=== PATIENT | male | born 1935 | race Caucasian/White ===

== ENCOUNTER 2018-07-22 18:08 | Emergency (ER) | payer MEDICARE, OTHER ==
[~2018-07-22] VITALS: Ht 167.6 cm; Wt 81.8 kg
[~2018-07-22 18:08] MED LIST: B-6 PO; BAYER ASPIRIN325 MG PO; DHEA25 M1 PO; DILAUDID4 MG PO; GAVISCON E1 TAB.CHEW PO; HYZAAR 100-25 T1 TAB PO; JENTADUETO 2.51 EACH PO; JENTADUETO PO; KEFLEX500 MG PO; LOVAZA1 G PO; NIACIN500 MG PO; PLAVIX75 MG PO; VITAFUSION PO; ZANTAC150 MG PO; [UNRECOGNIZED DRUG - OTHER] PO
[2018-07-22 18:30] VITALS: Ht 167.6 cm; Wt 81.8 kg
[2018-07-22] MEDS ORDERED: GLUCOPHAGE500 MG PO (18:34)
[2018-07-22] MEDS ORDERED: GLIMEPIRIDE1 MG PO (18:35)
[2018-07-22] MEDS ORDERED: BASAGLAR K100 UNIT/1 SC (18:35)
[2018-07-22] MEDS ORDERED: ROBAXIN500 MG PO (20:40)
[2018-07-22] MEDS ORDERED: ULTRAM50 MG PO (20:40)
[2018-07-22 20:47] VITALS: BP 134/66
== END 2018-07-22 20:47 | disposition home or self-care (01) ==
LOC: D.ER 18:08
DX: M54.16 Radiculopathy, lumbar region (principal); S16.1XXA Strain of muscle, fascia and tendon at neck level, initial encounter; V43.52XA Car driver injured in collision with other type car in traffic accident, initial encounter; Y93.89 Activity, other specified; Y92.410 Unspecified street and highway as the place of occurrence of the external cause; E11.9 Type 2 diabetes mellitus without complications; I10 Essential (primary) hypertension

== ENCOUNTER → 2018-07-26 19:28 | Outpatient (CLI) | payer MEDICARE, OTHER ==
[2018-07-22 18:30] VITALS: BMI 29.1
[~2018-07-26 19:28] MED LIST changes: +BASAGLAR K100 UNIT/1 SC; +GLIMEPIRIDE1 MG PO; +GLUCOPHAGE500 MG PO; +ROBAXIN500 MG PO; +ULTRAM50 MG PO
== END | disposition home or self-care (01) ==
LOC: D.LABREF 19:28
DX: M16.12 Unilateral primary osteoarthritis, left hip (principal); Z11.8 Encounter for screening for other infectious and parasitic diseases

== ENCOUNTER 2018-07-29 10:24 | Inpatient (IN) | payer MEDICARE, OTHER ==
[~2018-07-29] VITALS: Ht 167.6 cm; Wt 80.5 kg
[2018-08-11] MEDS ORDERED: SOMA250 MG PO (10:38)
[2018-08-11] MEDS ORDERED: TRESIBA FL100 UNIT/1 SC (10:39)
[2018-08-11] MEDS ORDERED: HYDROCODON-ACE1 EAC7 PO (10:42)
[2018-08-11 11:56] LABS: BASOPHILS 0.3 % (0-2); EOSINOPHILS 0.6 % (0-7); HEMATOCRIT 35.7 % (42.0-54.0); HEMOGLOBIN 12.8 g/dL (13.5-17.5); IMMATURE GRANULOCYTES 0.2 % (0-5); LYMPHOCYTES 17.8 % (15-50); MCH 31.4 pg (26.0-34.0); MCHC 35.9 g/dL (31.0-37.0); MCV 87.7 fL (80.0-100.0); MEAN PLATELET VOLUME 8.9 fL (7.4-10.4); MONOCYTES 10.6 % (2-11); NEUTROPHILS 70.5 % (40-80); PLATELET COUNT 275 10x3/uL (130-400); RBC 4.07 10x6/uL (4.20-6.10); WBC 8.9 10x3/uL (4.8-10.8)
[2018-08-11 12:02] LABS: CALCIUM 9.2 mg/dL (8.5-10.1); CARBON DIOXIDE 25.4 mmol/L (21.0-32.0); CHLORIDE - SERUM 92 mmol/L (98-107); CREATININE - SERUM 0.8 mg/dL (0.6-1.3); POTASSIUM - SERUM 3.7 mmol/L (3.5-5.1); SODIUM 128 mmol/L (136-145); UREA NITROGEN 17 mg/dL (7-18); eGFR NON AFRICAN AMERICAN > 90 mL/min (90-120)
[2018-08-11 12:06] LABS: APTT 35.2 SECONDS (22.8-39.4)
[2018-08-11 12:07] LABS: INR 1.01 (0.85-1.17); PROTIME 12.8 SECONDS (11.6-15.0)
[2018-08-11 12:11] LABS: CALC OSMOLALITY 255 mosm/kg (275-300)
[2018-08-11 12:18] LABS: GLUCOSE 41 mg/dL (74-106)
[2018-08-11 12:54] LABS: APPEARANCE CLEAR (CLEAR); BILIRUBIN NEGATIVE (NEGATIVE); COLOR YELLOW (YELLOW); GLUCOSE NEGATIVE (NEGATIVE); KETONE NEGATIVE (NEGATIVE); NITRITE NEGATIVE (NEGATIVE); PH 6.5 (5.0-6.0); PROTEIN NEGATIVE (NEGATIVE); SPECIFIC GRAVITY 1.015 (1.005-1.020); UROBILINOGEN NORMAL (NORMAL)
[2018-08-18 10:22] VITALS: BP 148/75; BMI 29.1
[2018-08-18 18:01] VITALS: BP 146/77
[2018-08-18 18:11] VITALS: BMI 28.6
[2018-08-18 21:36] VITALS: BP 140/68
[2018-08-19 00:36] VITALS: BP 138/60
[2018-08-19 05:44] VITALS: BP 120/64
[2018-08-19 05:48] LABS: BASOPHILS 0.1 % (0-2); EOSINOPHILS 0 % (0-7); HEMATOCRIT 29.2 % (42.0-54.0); IMMATURE GRANULOCYTES 0.2 % (0-5); LYMPHOCYTES 4.6 % (15-50); MCH 30.3 pg (26.0-34.0); MCHC 34.2 g/dL (31.0-37.0); MCV 88.5 fL (80.0-100.0); MONOCYTES 10.4 % (2-11); NEUTROPHILS 84.7 % (40-80); PLATELET COUNT 287 10x3/uL (130-400); RDW 14.6 % (11.5-14.5); WBC 11.2 10x3/uL (4.8-10.8)
[2018-08-19 06:16] LABS: ANION GAP 18.9 mmol/L (8-16); CALCIUM 7.9 mg/dL (8.5-10.1); CARBON DIOXIDE 22.5 mmol/L (21.0-32.0); CREATININE - SERUM 1.1 mg/dL (0.6-1.3); POTASSIUM - SERUM 4.4 mmol/L (3.5-5.1)
[2018-08-19 09:14] VITALS: BP 154/64
[2018-08-19 12:47] VITALS: BP 123/67
[2018-08-19 16:23] VITALS: BP 119/61
[2018-08-19 18:47] LABS: BASOPHILS 0.1 % (0-2); EOSINOPHILS 0 % (0-7); HEMATOCRIT 29.5 % (42.0-54.0); HEMOGLOBIN 10.2 g/dL (13.5-17.5); IMMATURE GRANULOCYTES 0.4 % (0-5); LYMPHOCYTES 4.6 % (15-50); MCH 30.8 pg (26.0-34.0); MCHC 34.6 g/dL (31.0-37.0); MCV 89.1 fL (80.0-100.0); MEAN PLATELET VOLUME 8.7 fL (7.4-10.4); MONOCYTES 11.7 % (2-11); NEUTROPHILS 83.2 % (40-80); PLATELET COUNT 258 10x3/uL (130-400); RBC 3.31 10x6/uL (4.20-6.10); RDW 14.8 % (11.5-14.5)
[2018-08-19 18:58] LABS: ANION GAP 16.2 mmol/L (8-16); BILIRUBIN - TOTAL 0.42 mg/dL (0.2-1.3); CALCIUM 8.4 mg/dL (8.5-10.1); CARBON DIOXIDE 24.5 mmol/L (21.0-32.0); CREATININE - SERUM 1.1 mg/dL (0.6-1.3); PROTEIN - SERUM 6.7 g/dL (6.4-8.2)
[2018-08-19 19:00] LABS: POTASSIUM - SERUM 3.7 mmol/L (3.5-5.1); WBC 18.4 10x3/uL (4.8-10.8)
[2018-08-19 21:11] VITALS: BP 140/63
[2018-08-20 05:42] VITALS: BP 140/71
[2018-08-20 05:50] LABS: ALBUMIN 2.7 g/dL (3.4-5.0); ALKALINE PHOSPHATASE 61 U/L (46-116); ALT (SGPT) 21 U/L (10-68); BILIRUBIN - TOTAL 0.45 mg/dL (0.2-1.3); CALC OSMOLALITY 264 mosm/kg (275-300); CALCIUM 8.3 mg/dL (8.5-10.1); CARBON DIOXIDE 29.2 mmol/L (21.0-32.0); CHLORIDE - SERUM 92 mmol/L (98-107); GLUCOSE 190 mg/dL (74-106); POTASSIUM - SERUM 3.3 mmol/L (3.5-5.1); PROTEIN - SERUM 6.2 g/dL (6.4-8.2); SODIUM 129 mmol/L (136-145); UREA NITROGEN 15 mg/dL (7-18); eGFR NON AFRICAN AMERICAN 76 mL/min (90-120)
[2018-08-20 06:05] LABS: HEMATOCRIT 26.6 % (42.0-54.0); HEMOGLOBIN 9.5 g/dL (13.5-17.5); LYMPHOCYTES 5.8 % (15-50); MCHC 35.7 g/dL (31.0-37.0); MCV 89.6 fL (80.0-100.0); MEAN PLATELET VOLUME 8.6 fL (7.4-10.4); NEUTROPHILS 81.8 % (40-80); PLATELET COUNT 262 10x3/uL (130-400); RBC 2.97 10x6/uL (4.20-6.10); RDW 14.8 % (11.5-14.5)
[2018-08-20 06:06] LABS: WBC 13.4 10x3/uL (4.8-10.8)
[2018-08-20 09:13] VITALS: BP 133/52
[2018-08-20 09:34] VITALS: Ht 167.6 cm; Wt 80.5 kg
[2018-08-20 12:00] VITALS: BP 130/60
--- NOTE | 2018-08-20 12:12 | MORECARE ---
CASE MANAGEMENT DISCHARGE SUMMARY PATIENT: SALAS CHRISTIAN UNIT: [id number] ADM DATE: 08/18/18 AGE: 82 : 37 SEX: M ROOM/BED: D.2207 AUTHOR: LUKASDOC PHYSICIAN: REFERRING PHYSICIAN: GARY NICHOLAS MD DATE OF SERVICE: 08/20/18 Discharge Plan Patient Name: SALAS CHRISTIAN Facility: [facility]:[place] : 1935 Planned Disposition: Inpatient Rehab Anticipated Discharge Date: Discharge Date: Expected LOS: Initial Reviewer: [email or web address] Initial Review Date: 08/18/2018 Generated: 08/20/18 1:11 pm Comments DCP- Discharge Planning Updated by [email or web address]: Cinthia Swaant on 08/20/18 11:[address] Patient Name: SALAS CHRISTIAN Admission Status: Elective Accout number: [id number] Admission Date: 08-18-2018 : 1935 Admission Diagnosis: Attending: GARY NICHOLAS Current LOS: 2 Anticipated DC Date: Planned Disposition: Inpatient Rehab Primary Insurance: MEDICARE A & B Discharge Planning Comments: CM met with patient to complete initial dc planning assessment. CM educated patient on the CM role and verbal consent given by patient to complete assessment. Patient lives at home with his where he was independent with his care before surgery. At discharge patient would like to return home and feels this is a safe discharge. After reading the MD notes, they are suggesting he will go to [facility] inpatient rehab. Patient asked me to call his and talk to her about all of this. I attempted to call Mady () but did not get an answer. CM discussed availability of home health, rehab services, and medical equipment. Patient has a walker at home. CM will continue to follow and will assist as needed with dc plans/needs. Flatwork Presser: Cinthia Sawant DCPIA - Discharge Planning Initial Assessment Updated by [email or web address]: Cinthia Sawant on 08/20/18 12:05 pm * Is the patient Alert and Oriented? Yes * How many steps to enter\exit or inside your home? * PCP FARO * [facility] * Preadmission Environment Home with Family * ADLs Independent * Equipment Walker * List name and contact numbers for known caregivers / representatives who currently or will assist patient after discharge: MADY () [phone] * Verbal permission to speak to the caregivers and representatives has been obtained from the patient. Yes * Community resources currently utilized None * Additional services required to return to the preadmission environment? Yes * Can the patient safely return to the preadmission environment? Yes * Has this patient been hospitalized within the prior 30 days at any hospital? No Patient Name: SALAS CHRISTIAN Page [id number] at 1212 All edits/amendments must be made on the electronic document DICTATION DATE: 08/20/18 1211 PATIENT OBSERVER: TERA 08/20/18 1211 RPT#: [id number] DC DATE: STATUS: ADM IN [facility] [address] [place] [address] END OF REPORT
--- NOTE | 2018-08-20 12:36 | MORECARE ---
CASE MANAGEMENT DISCHARGE SUMMARY PATIENT: SALAS CHRISTIAN UNIT: [id number] ADM DATE: 08/18/18 AGE: 82 : 37 SEX: M ROOM/BED: D.2207 AUTHOR: LUKASDOC PHYSICIAN: REFERRING PHYSICIAN: GARY NICHOLAS MD DATE OF SERVICE: 08/20/18 Discharge Plan Patient Name: SALAS CHRISTIAN Facility: [facility]:[place] : 1935 Planned Disposition: Inpatient Rehab Anticipated Discharge Date: Discharge Date: Expected LOS: Initial Reviewer: [id number] Initial Review Date: 08/18/2018 Generated: 08/20/18 1:35 pm Comments DCP- Discharge Planning Updated by [email or web address]: Cinthia Sawant on 08/20/18 11:[address] Patient Name: SALAS CHRISTIAN Admission Status: Elective Accout number: [id number] Admission Date: 08-18-2018 : 1935 Admission Diagnosis: Attending: GARY NICHOLAS Current LOS: 2 Anticipated DC Date: Planned Disposition: Inpatient Rehab Primary Insurance: MEDICARE A & B Discharge Planning Comments: CM met with patient to complete initial dc planning assessment. CM educated patient on the CM role and verbal consent given by patient to complete assessment. Patient lives at home with his where he was independent with his care before surgery. At discharge patient would like to return home and feels this is a safe discharge. After reading the MD notes, they are suggesting he will go to [facility] inpatient rehab. Patient asked me to call his and talk to her about all of this. I attempted to call Mady () but did not get an answer. CM discussed availability of home health, rehab services, and medical equipment. Patient has a walker at home. CM will continue to follow and will assist as needed with dc plans/needs. Wood Gouger: Cinthia Sawant DCPIA - Discharge Planning Initial Assessment Updated by [email or web address]: Cinthia Sawant on 08/20/18 12:05 pm * Is the patient Alert and Oriented? Yes * How many steps to enter\exit or inside your home? * PCP [facility]O * [facility] * Preadmission Environment Home with Family * ADLs Independent * Equipment Walker * List name and contact numbers for known caregivers / representatives who currently or will assist patient after discharge: MADY () [phone] * Verbal permission to speak to the caregivers and representatives has been obtained from the patient. Yes * Community resources currently utilized None * Additional services required to return to the preadmission environment? Yes * Can the patient safely return to the preadmission environment? Yes * Has this patient been hospitalized within the prior 30 days at any hospital? No External Providers External Provider: [facility] Contact Date: Service Request Date: Service Type: Resolution: Reviewer: Comments: Last DP export: 08/20/18 11:12 a Patient Name: SALAS CHRISTIAN Page 25858 at 1236 All edits/amendments must be made on the electronic document DICTATION DATE: 08/20/18 1235 CIRCUITRY NEGATIVE INSPECTOR: TERA 08/20/18 1235 RPT#: [id number] AL DATE: STATUS: ADM IN [facility] [address] [place] [address] END OF REPORT
--- NOTE | 2018-08-20 12:50 | MORECARE ---
CASE MANAGEMENT DISCHARGE SUMMARY PATIENT: SALAS CHRISTIAN UNIT: [id number] ADM DATE: 08/18/18 AGE: 82 : 37 SEX: M ROOM/BED: D.2207 AUTHOR: QUINN GAYTAN PHYSICIAN: REFERRING PHYSICIAN: GARY NICHOLAS MD DATE OF SERVICE: 08/20/18 Discharge Plan Patient Name: SALAS CHRISTIAN Facility: [facility]:[place] : 1935 Planned Disposition: Inpatient Rehab Anticipated Discharge Date: Discharge Date: Expected LOS: Initial Reviewer: [email or web address] Initial Review Date: 08/18/2018 Generated: 08/20/18 1:50 pm Comments DCP- Discharge Planning Updated by [id number]: Cinthia Sawant on 08/20/18 11:[address] PATIENT IN ROOM, SHE WOULD LIKE HIM TO GO TO [facility] INPATIENT REHAB, SHE STATED THAT THEY LIKE THE PEOPLE HERE AND WOULD LIKE TO STAY HERE IF POSSIBLE DCP- Discharge Planning Updated by [email or web address]: Cinthia Sawant on 08/20/18 11:[address] Patient Name: SALAS CHRISTIAN Admission Status: Elective Accout number: [id number] Admission Date: 08-18-2018 : 1935 Admission Diagnosis: Attending: GARY NICHOLAS Current LOS: 2 Anticipated DC Date: Planned Disposition: Inpatient Rehab Primary Insurance: MEDICARE A & B Discharge Planning Comments: CM met with patient to complete initial dc planning assessment. CM educated patient on the CM role and verbal consent given by patient to complete assessment. Patient lives at home with his where he was independent with his care before surgery. At discharge patient would like to return home and feels this is a safe discharge. After reading the MD notes, they are suggesting he will go to [facility] inpatient rehab. Patient asked me to call his and talk to her about all of this. I attempted to call Mady () but did not get an answer. CM discussed availability of home health, rehab services, and medical equipment. Patient has a walker at home. CM will continue to follow and will assist as needed with dc plans/needs. Operations Processor: Cinthia Sawant DCPIA - Discharge Planning Initial Assessment Updated by [email or web address]: Cinthia Sawant on 08/20/18 12:05 pm * Is the patient Alert and Oriented? Yes * How many steps to enter\exit or inside your home? * PCP [facility]O * [facility] * Preadmission Environment Home with Family * ADLs Independent * Equipment Walker * List name and contact numbers for known caregivers / representatives who currently or will assist patient after discharge: MADY () [phone] * Verbal permission to speak to the caregivers and representatives has been obtained from the patient. Yes * Community resources currently utilized None * Additional services required to return to the preadmission environment? Yes * Can the patient safely return to the preadmission environment? Yes * Has this patient been hospitalized within the prior 30 days at any hospital? No Last DP export: 08/20/18 11:35 a Patient Name: SALAS CHRISTIAN Page 75868 at 1250 All edits/amendments must be made on the electronic document DICTATION DATE: 08/20/18 1250 YOUTH CARE SPECIALIST: TERA 08/20/18 1250 RPT#: [id number] DC DATE: STATUS: ADM IN [facility] [address] [place] [address] END OF REPORT
[2018-08-20 16:00] VITALS: BP 110/57
[2018-08-20 22:06] VITALS: BP 116/56
[2018-08-21 01:38] VITALS: BP 117/56
[2018-08-21 05:19] VITALS: BP 102/54
[2018-08-21 06:53] LABS: BASOPHILS 0.1 % (0-2); EOSINOPHILS 0.1 % (0-7); HEMATOCRIT 24.5 % (42.0-54.0); HEMOGLOBIN 8.3 g/dL (13.5-17.5); IMMATURE GRANULOCYTES 0.2 % (0-5); LYMPHOCYTES 13.5 % (15-50); MCH 30.4 pg (26.0-34.0); MCHC 33.9 g/dL (31.0-37.0); MCV 89.7 fL (80.0-100.0); MEAN PLATELET VOLUME 8.9 fL (7.4-10.4); MONOCYTES 12.7 % (2-11); NEUTROPHILS 73.4 % (40-80); PLATELET COUNT 243 10x3/uL (130-400); RBC 2.73 10x6/uL (4.20-6.10); RDW 14.9 % (11.5-14.5); WBC 10.5 10x3/uL (4.8-10.8)
[2018-08-21 07:19] LABS: ALBUMIN 2.4 g/dL (3.4-5.0); ANION GAP 13.5 mmol/L (8-16); BILIRUBIN - TOTAL 0.43 mg/dL (0.2-1.3); CALCIUM 8.3 mg/dL (8.5-10.1); CREATININE - SERUM 1.2 mg/dL (0.6-1.3); POTASSIUM - SERUM 3.5 mmol/L (3.5-5.1); PROTEIN - SERUM 6.1 g/dL (6.4-8.2)
[2018-08-21 09:00] VITALS: BP 134/65
[2018-08-21 13:40] VITALS: BP 102/49
[2018-08-21 18:20] VITALS: BP 104/53
[2018-08-21 21:43] VITALS: BP 127/53
[2018-08-22] VITALS (9 sets, daily range): BP systolic 101–140; BP diastolic 50–65
[2018-08-22 07:02] LABS: HEMATOCRIT 24.5 % (42.0-54.0); HEMOGLOBIN 8.5 g/dL (13.5-17.5); MCHC 34.7 g/dL (31.0-37.0); MCV 89.4 fL (80.0-100.0); MEAN PLATELET VOLUME 9.1 fL (7.4-10.4); PLATELET COUNT 238 10x3/uL (130-400); RBC 2.74 10x6/uL (4.20-6.10); RDW 14.6 % (11.5-14.5); WBC 7.4 10x3/uL (4.8-10.8)
[2018-08-22 07:15] LABS: ALBUMIN 2.3 g/dL (3.4-5.0); ANION GAP 15.4 mmol/L (8-16); BILIRUBIN - TOTAL 0.62 mg/dL (0.2-1.3); CALCIUM 8.2 mg/dL (8.5-10.1); CREATININE - SERUM 1.4 mg/dL (0.6-1.3); POTASSIUM - SERUM 3.4 mmol/L (3.5-5.1); PROTEIN - SERUM 5.8 g/dL (6.4-8.2)
[2018-08-22 08:08] LABS: EOSINOPHILS 2 % (0-7); HYPOCHROMASIA 2+; LYMPHOCYTES 19 % (15-50); MONOCYTES 7 % (2-11); NEUTROPHILS 68 % (40-80); PLATELET ESTIMATE NORMAL; ROULEAUX 1+
[2018-08-23] VITALS: BP 140/62
[2018-08-23 04:00] VITALS: BP 131/59
[2018-08-23 04:16] LABS: BASOPHILS 0.3 % (0-2); EOSINOPHILS 1.8 % (0-7); HEMOGLOBIN 8.2 g/dL (13.5-17.5); IMMATURE GRANULOCYTES 0.6 % (0-5); LYMPHOCYTES 12.7 % (15-50); MCH 30.5 pg (26.0-34.0); MCHC 34.2 g/dL (31.0-37.0); MCV 89.2 fL (80.0-100.0); MEAN PLATELET VOLUME 8.4 fL (7.4-10.4); MONOCYTES 15.7 % (2-11); NEUTROPHILS 68.9 % (40-80); PLATELET COUNT 240 10x3/uL (130-400); RBC 2.69 10x6/uL (4.20-6.10); RDW 14.2 % (11.5-14.5); WBC 7.2 10x3/uL (4.8-10.8)
[2018-08-23 04:37] LABS: ALBUMIN 2.2 g/dL (3.4-5.0); ALKALINE PHOSPHATASE 76 U/L (46-116); ALT (SGPT) 22 U/L (10-68); BILIRUBIN - TOTAL 0.39 mg/dL (0.2-1.3); CARBON DIOXIDE 26.3 mmol/L (21.0-32.0); CHLORIDE - SERUM 91 mmol/L (98-107); POTASSIUM - SERUM 3.7 mmol/L (3.5-5.1); PROTEIN - SERUM 5.8 g/dL (6.4-8.2); SODIUM 126 mmol/L (136-145); eGFR NON AFRICAN AMERICAN 76 mL/min (90-120)
[2018-08-23 04:50] LABS: CALC OSMOLALITY 261 mosm/kg (275-300); GLUCOSE 193 mg/dL (74-106); UREA NITROGEN 25 mg/dL (7-18)
[2018-08-23 08:44] VITALS: BP 116/69; BP 157/69
[2018-08-23 13:16] VITALS: BP 115/50
[2018-08-23 17:29] VITALS: BP 131/76
[2018-08-23 20:00] VITALS: BP 134/57
[2018-08-24] VITALS: BP 125/63
[2018-08-24 04:00] VITALS: BP 136/63
[2018-08-24 04:44] LABS: BASOPHILS 0.1 % (0-2); EOSINOPHILS 0.3 % (0-7); HEMATOCRIT 23.9 % (42.0-54.0); HEMOGLOBIN 8.3 g/dL (13.5-17.5); LYMPHOCYTES 12.1 % (15-50); MCH 31.2 pg (26.0-34.0); MCHC 34.7 g/dL (31.0-37.0); MCV 89.8 fL (80.0-100.0); MEAN PLATELET VOLUME 8.5 fL (7.4-10.4); MONOCYTES 16.1 % (2-11); NEUTROPHILS 70.4 % (40-80); PLATELET COUNT 267 10x3/uL (130-400); RBC 2.66 10x6/uL (4.20-6.10); RDW 14.1 % (11.5-14.5)
[2018-08-24 04:58] LABS: WBC 9.1 10x3/uL (4.8-10.8)
[2018-08-24 05:13] LABS: ALBUMIN 2.2 g/dL (3.4-5.0); ALKALINE PHOSPHATASE 63 U/L (46-116); ALT (SGPT) 21 U/L (10-68); BILIRUBIN - TOTAL 0.56 mg/dL (0.2-1.3); CALC OSMOLALITY 266 mosm/kg (275-300); CARBON DIOXIDE 28.9 mmol/L (21.0-32.0); CHLORIDE - SERUM 93 mmol/L (98-107); CREATININE - SERUM 0.9 mg/dL (0.6-1.3); GLUCOSE 164 mg/dL (74-106); POTASSIUM - SERUM 3.6 mmol/L (3.5-5.1); PROTEIN - SERUM 5.8 g/dL (6.4-8.2); SODIUM 130 mmol/L (136-145); eGFR NON AFRICAN AMERICAN 86 mL/min (90-120)
[2018-08-24 05:20] LABS: UREA NITROGEN 17 mg/dL (7-18)
[2018-08-24 09:23] VITALS: BP 131/61
[2018-08-24 09:34] LABS: APPEARANCE CLEAR (CLEAR); BILIRUBIN NEGATIVE (NEGATIVE); COLOR YELLOW (YELLOW); GLUCOSE 1000 mg/dL (NEGATIVE); KETONE SMALL mg/dL (NEGATIVE); NITRITE NEGATIVE (NEGATIVE); PROTEIN NEGATIVE (NEGATIVE); SPECIFIC GRAVITY 1.015 (1.005-1.020); UROBILINOGEN NORMAL (NORMAL)
--- NOTE | 2018-08-24 10:02 | MORECARE ---
CASE MANAGEMENT DISCHARGE SUMMARY PATIENT: SALAS CHRISTIAN UNIT: [id number] ADM DATE: 08/18/18 AGE: 82 : 37 SEX: M ROOM/BED: D.2207 AUTHOR: QUINN GAYTAN PHYSICIAN: REFERRING PHYSICIAN: GARY NICHOLAS MD DATE OF SERVICE: 08/24/18 Discharge Plan Patient Name: SALAS CHRISTIAN Facility: [facility]:[place] : 1935 Planned Disposition: Inpatient Rehab Anticipated Discharge Date: Discharge Date: Expected LOS: Initial Reviewer: [email or web address] Initial Review Date: 08/18/2018 Generated: 08/24/18 11:02 am Comments DCP- Discharge Planning Updated by [email or web address]: Cinthia Sawant on 08/24/18 8:[address] Patient Name: SALAS CHRISTIAN Encounter No: [id number] : 1935 Primary Insurance: MEDICARE A & B Anticipated DC Date: Planned Disposition: Inpatient Rehab External Planned Provider: : DCP follow-up note: Patient and family in agreement with discharge plan. Patient will be discharged to out inpatient rehab today. IMM served and explained. I attempted to call his to let her know, but she did not answer. No changes to plan. Case management will follow and assist as needed. Cinthia Sawant DCP- Discharge Planning Updated by [email or web address]: Cinthia Sawant on 08/20/18 11:[address] PATIENT IN ROOM, SHE WOULD LIKE HIM TO GO TO [facility] INPATIENT REHAB, SHE STATED THAT THEY LIKE THE PEOPLE HERE AND WOULD LIKE TO STAY HERE IF POSSIBLE DCP- Discharge Planning Updated by [email or web address]: Cinthia Sawant on 08/20/18 11:[address] Patient Name: SALAS CHRISTIAN Admission Status: Elective Accout number: [id number] Admission Date: 08-18-2018 : 1935 Admission Diagnosis: Attending: GARY NICHOLAS Current LOS: 2 Anticipated DC Date: Planned Disposition: Inpatient Rehab Primary Insurance: MEDICARE A & B Discharge Planning Comments: CM met with patient to complete initial dc planning assessment. CM educated patient on the CM role and verbal consent given by patient to complete assessment. Patient lives at home with his where he was independent with his care before surgery. At discharge patient would like to return home and feels this is a safe discharge. After reading the MD notes, they are suggesting he will go to [facility] inpatient rehab. Patient asked me to call his and talk to her about all of this. I attempted to call Mady () but did not get an answer. CM discussed availability of home health, rehab services, and medical equipment. Patient has a walker at home. CM will continue to follow and will assist as needed with dc plans/needs. Electrical Engineering Draftsperson: Cinthia Sawant DCPIA - Discharge Planning Initial Assessment Updated by [email or web address]: Cinthia Sawant on 08/20/18 12:05 pm * Is the patient Alert and Oriented? Yes * How many steps to enter\exit or inside your home? * PCP [facility]O * [facility] * Preadmission Environment Home with Family * ADLs Independent * Equipment Walker * List name and contact numbers for known caregivers / representatives who currently or will assist patient after discharge: MADY () [phone] * Verbal permission to speak to the caregivers and representatives has been obtained from the patient. Yes * Community resources currently utilized None * Additional services required to return to the preadmission environment? Yes * Can the patient safely return to the preadmission environment? Yes * Has this patient been hospitalized within the prior 30 days at any hospital? No Coverage Notice Reviewer: [id number] - Cinthia Sawant Notice Issued Date-Time: 08/24/2018 9:50 Notice Type: IM Discharge Notice Notice Delivered To: Patient Relationship to Patient: Oil Lease Operator Name: Delivery Method: HAND - Hand Delivered Teodora Days: Prior Verbal Notification: Recipient Understood Notice: Yes Recipient Signature: Yes Med Rec Note Co-signed by Attending: Coverage Notice Comment: Last DP export: 08/20/18 11:50 a Patient Name: SALAS CHRISTIAN Page 78561 at 1002 All edits/amendments must be made on the electronic document DICTATION DATE: 08/24/18 1002 ELECTRICAL DRAFTER: TERA 08/24/18 1002 RPT#: [id number] DC DATE: STATUS: ADM IN [facility] [address] [place] [address] END OF REPORT
[2018-08-24] MEDS ORDERED: COLACE100 MG PO (10:13)
[2018-08-24] MEDS ORDERED: MIRALAX17 GM PO (10:13)
[2018-08-24] MEDS ORDERED: PROTONIX40 MG PO (10:13)
[2018-08-24] MEDS ORDERED: CARAFATE1 G PO (10:13)
[2018-08-24] MEDS ORDERED: DULCOLAX10 MG/SUPP RC (10:14)
[2018-08-24 14:21] VITALS: BP 126/62
--- NOTE | 2018-08-24 17:04 | MORECARE ---
CASE MANAGEMENT DISCHARGE SUMMARY PATIENT: SALAS CHRISTIAN UNIT: [id number] ADM DATE: 08/18/18 AGE: 82 : 37 SEX: M ROOM/BED: D.2207 AUTHOR: QUINN GAYTAN PHYSICIAN: REFERRING PHYSICIAN: GARY NICHOLAS MD DATE OF SERVICE: 08/24/18 Discharge Plan Patient Name: SALAS CHRISTIAN Facility: [facility]:[place] : 1935 Planned Disposition: Inpatient Rehab Anticipated Discharge Date: Discharge Date: 08/24/2018 Expected LOS: 0 Initial Reviewer: [email or web address] Initial Review Date: 08/18/2018 Generated: 08/24/18 6:03 pm Comments DCP- Discharge Planning Updated by [email or web address]: Cinthia Sawant on 08/24/18 8:[address] Patient Name: SALAS CHRISTIAN Encounter No: [id number] : 1935 Primary Insurance: MEDICARE A & B Anticipated DC Date: Planned Disposition: Inpatient Rehab External Planned Provider: : DCP follow-up note: Patient and family in agreement with discharge plan. Patient will be discharged to out inpatient rehab today. IMM served and explained. I attempted to call his to let her know, but she did not answer. No changes to plan. Case management will follow and assist as needed. Cinthia Sawant DCP- Discharge Planning Updated by [email or web address]: Cinthia Sawant on 08/20/18 11:[address] PATIENT IN ROOM, SHE WOULD LIKE HIM TO GO TO [facility] INPATIENT REHAB, SHE STATED THAT THEY LIKE THE PEOPLE HERE AND WOULD LIKE TO STAY HERE IF POSSIBLE DCP- Discharge Planning Updated by [email or web address]: Cinthia Sawant on 08/20/18 11:[address] Patient Name: SALAS CHRISTIAN Admission Status: Elective Accout number: [id number] Admission Date: 08-18-2018 : 1935 Admission Diagnosis: Attending: GARY NICHOLAS Current LOS: 2 Anticipated DC Date: Planned Disposition: Inpatient Rehab Primary Insurance: MEDICARE A & B Discharge Planning Comments: CM met with patient to complete initial dc planning assessment. CM educated patient on the CM role and verbal consent given by patient to complete assessment. Patient lives at home with his where he was independent with his care before surgery. At discharge patient would like to return home and feels this is a safe discharge. After reading the MD notes, they are suggesting he will go to [facility] inpatient rehab. Patient asked me to call his and talk to her about all of this. I attempted to call Mady () but did not get an answer. CM discussed availability of home health, rehab services, and medical equipment. Patient has a walker at home. CM will continue to follow and will assist as needed with dc plans/needs. Plant Technician/Control Room Operator: Cinthia Sawant DCPIA - Discharge Planning Initial Assessment Updated by [id number]: Cinthia Sawant on 08/20/18 12:05 pm * Is the patient Alert and Oriented? Yes * How many steps to enter\exit or inside your home? * PCP [facility] * [facility] * Preadmission Environment Home with Family * ADLs Independent * Equipment Walker * List name and contact numbers for known caregivers / representatives who currently or will assist patient after discharge: MADY () [phone] * Verbal permission to speak to the caregivers and representatives has been obtained from the patient. Yes * Community resources currently utilized None * Additional services required to return to the preadmission environment? Yes * Can the patient safely return to the preadmission environment? Yes * Has this patient been hospitalized within the prior 30 days at any hospital? No Coverage Notice Reviewer: [id number] - Cinthia Sawant Notice Issued Date-Time: 08/24/2018 9:50 Notice Type: IM Discharge Notice Notice Delivered To: Patient Relationship to Patient: Chair Inspector Name: Delivery Method: HAND - Hand Delivered Teodora Days: Prior Verbal Notification: Recipient Understood Notice: Yes Recipient Signature: Yes Med Rec Note Co-signed by Attending: Coverage Notice Comment: Last DP export: 08/24/18 9:02 a Patient Name: SALAS CHRISTIAN Page 45109 at 1704 All edits/amendments must be made on the electronic document DICTATION DATE: 08/24/181702 SCHOOL TEACHER: TERA 08/24/181702 RPT#: [id number] DC DATE:08/24/18 STATUS: DIS IN [facility] [address] [place] [address] END OF REPORT
== END 2018-08-24 15:52 | DRG 470 ==
LOC: D.SDCHOLD 08-11 10:00 → D.MS 08-18 09:20 → D.SDCHOLD 08-18 09:20 → D.MS 08-18 16:54
PROVIDERS: Family Medicine; Internal Medicine Nephrology; ADMIT Orthopaedic Surgery
PROC: 0SRB0JZ Replacement of Left Hip Joint with Synthetic Substitute, Open Approach (ICD-10-PCS; principal; 2018-08-18 11:30)
PROC: 0D758ZZ Dilation of Esophagus, Via Natural or Artificial Opening Endoscopic (ICD-10-PCS; 2018-08-23)
DX: M16.12 Unilateral primary osteoarthritis, left hip (principal); D62 Acute posthemorrhagic anemia; K56.7 Ileus, unspecified; N17.9 Acute kidney failure, unspecified; E87.1 Hypo-osmolality and hyponatremia; K92.2 Gastrointestinal hemorrhage, unspecified; K91.89 Other postprocedural complications and disorders of digestive system; I10 Essential (primary) hypertension; E11.9 Type 2 diabetes mellitus without complications; I25.10 Atherosclerotic heart disease of native coronary artery without angina pectoris; K21.9 Gastro-esophageal reflux disease without esophagitis; G62.9 Polyneuropathy, unspecified; K22.70 Barrett's esophagus without dysplasia; K22.2 Esophageal obstruction; E86.0 Dehydration

== ENCOUNTER → 2018-08-05 16:03 | Outpatient (CLI) | payer MEDICARE, OTHER ==
[2018-07-22 18:30] VITALS: BMI 29.1
[~2018-08-05 16:03] MED LIST changes: +CARAFATE1 G PO; +COLACE100 MG PO; +DULCOLAX10 MG/SUPP RC; +HYDROCODON-ACE1 EAC7 PO; +MIRALAX17 GM PO; +PROTONIX40 MG PO; +SOMA250 MG PO; +TRESIBA FL100 UNIT/1 SC
== END | disposition home or self-care (01) ==
LOC: D.CT 16:00
DX: M25.552 Pain in left hip (principal)

== ENCOUNTER 2018-08-24 16:02 | Inpatient (IN) | payer MEDICARE, OTHER ==
[~2018-08-24] VITALS: Ht 167.6 cm; Wt 80.7 kg
[2018-08-24 16:52] VITALS: BP 131/56; BMI 28.8
--- NOTE | 2018-08-24 19:35 | NUR ---
PT AWAKE ON PHONE WITH , NO NEEDS NOTED, 200ML OUTPUT IN URINAL, FLUIDS AND CALL LIGHT WITHIN REACH
[2018-08-24 20:00] VITALS: BP 125/82
--- NOTE | 2018-08-25 05:04 | NUR ---
PT ASLEEP NO NEEDS NOTED AT THIS TIME FLUIDS AND CALL LIJT WITHIN REACH
[2018-08-25 07:14] LABS: CALC OSMOLALITY 267 mosm/kg (275-300); CALCIUM 8.1 mg/dL (8.5-10.1); CARBON DIOXIDE 27.3 mmol/L (21.0-32.0); CHLORIDE - SERUM 94 mmol/L (98-107); CREATININE - SERUM 0.8 mg/dL (0.6-1.3); GLUCOSE 166 mg/dL (74-106); POTASSIUM - SERUM 3.6 mmol/L (3.5-5.1); SODIUM 131 mmol/L (136-145); UREA NITROGEN 15 mg/dL (7-18); eGFR NON AFRICAN AMERICAN > 90 mL/min (90-120)
[2018-08-25 07:21] LABS: BASOPHILS 0.2 % (0-2); EOSINOPHILS 0.3 % (0-7); HEMATOCRIT 24.3 % (42.0-54.0); HEMOGLOBIN 8.2 g/dL (13.5-17.5); IMMATURE GRANULOCYTES 0.8 % (0-5); LYMPHOCYTES 9.7 % (15-50); MCH 30.3 pg (26.0-34.0); MCHC 33.7 g/dL (31.0-37.0); MCV 89.7 fL (80.0-100.0); MEAN PLATELET VOLUME 8.5 fL (7.4-10.4); MONOCYTES 12.2 % (2-11); NEUTROPHILS 76.8 % (40-80); PLATELET COUNT 301 10x3/uL (130-400); RBC 2.71 10x6/uL (4.20-6.10); RDW 14.2 % (11.5-14.5); WBC 10.1 10x3/uL (4.8-10.8)
[2018-08-25 08:00] VITALS: BP 150/72
--- NOTE | 2018-08-25 08:00 | NUR ---
SITTING UP IN BED FOR BREAKFAST. HIS APPETITE IS POOR. HE IS SLOW TO EAT AND DRINK. HE DOES NOT COUGH AFTER SWALLOWING. IN ROOM WITH PT.
--- NOTE | 2018-08-25 10:28 | RHP ---
PATIENT: SALAS CHRISTIAN MEDICAL RECORD: [id number] ACCOUNT: [id number] LOCATION:[facility]1119 : [birth year] ADMISSION DATE: 08/24/18 REHABILITATION HISTORY AND PHYSICAL EXAMINATION POST ADMISSION PHYSICIAN EXAMINATION POST ADMISSION PHYSICAL EXAMINATION AND HISTORY AND PHYSICAL DATE OF ADMISSION: 08/24/2018 ADMITTING DIAGNOSIS: Status post left total hip arthroscopy with some postop complications. HISTORY OF PRESENT ILLNESS: The patient is an 82-year-old gentleman, who was admitted to the inpatient rehab secondary to severe left hip pain. He went to the OR on 08/18 and was admitted to the services of Dr. Wren. After surgery, he had elevated temperature, blood-loss anemia with an H&H of 8 and 24. He did receive packed red blood cells. He also had lower sodium of 126 and hypokalemia associated with nausea and vomiting. He was placed on electrolyte protocol. He showed some gastric distention on x-rays. Stomach, bowel, and colon were all consistent with postop ileus. Surgery and GI were consulted. He was placed on n.p.o. status. He says that he has severe reflux, which caused the vomiting. 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 He did have blood in the stool. On 08/23, he had an EGD to evaluate the dysphagia, anemia, and melena. 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 He had dilatation noted with this. GI recommended to resume his diet. He was continued on Protonix at 40 mg b.i.d. for 30 days, then once daily after that; Carafate suspension 1 gram t.i.d. for 3 weeks; and to follow up the biopsies. Previously, he was moderately independent for ADLs and mobility using a rolling walker. He lives with his . Currently, he is very fatigued and weak. He is mod-to-max assist for ADLs and mobility due to weakness, anemia, and nonweightbearing status on his leg. Comorbidities in this patient include end-stage left hip degenerative joint disease, status post left hip arthroplasty, acute blood-loss anemia, postoperative ileus, postop fever, leukocytosis, melena, dehydration, kpojkhxn-kb-[id number] erosive esophagitis, gastritis, dysphagia, hypertension, cardiac murmur, skin cancer, acid reflux, Parikh disease, arthritis, chronic back pain, former tobacco use, benign prostatic hypertrophy, acute kidney injury, prerenal azotemia, and hyponatremia. PAST MEDICAL HISTORY: Significant for neuropathy, numbness, weakness, vertigo, tingling, coronary artery disease, hypertension, murmur. He has had acid reflux, arthritis, chronic back and shoulder pain, knee pain, the shingles, prostate problems. PAST SURGICAL HISTORY: Includes knee surgery, appendectomy, tonsillectomy, adenoidectomy, right knee replacement, tendon repair to his hand, shoulder replacement, both knee replacement. ALLERGIES: SULFA DRUGS AND DILAUDID. CURRENT MEDICATIONS: Include Carafate 1 gram t.i.d. q.a.c., Protonix 40 mg b.i.d., Soma 350 mg q.i.d. p.r.n., polyethylene glycol 17 grams in 8 ounces of water daily. He is on a low-resistant sliding scale with Humalog, MiraLax 17 grams in 8 ounces of water daily. He is on Nelson 5/325 one tab b.i.d., Colace HISTORY AND PHYSICAL [id number] MARLYS CHRISTIANALD G 100 mg b.i.d., and Dulcolax suppositories p.r.n. HABITS: No current alcohol or tobacco use. FAMILY HISTORY: Noncontributory. SOCIAL HISTORY: The patient hopes to return back home and get back to his prior level of functioning. REVIEW OF SYSTEMS: GENERAL: Does complain of some weakness and fatigue. HEENT: Denies cold, cough, or congestion. CARDIOVASCULAR: Denies chest pain. PHYSICAL EXAMINATION: VITAL SIGNS: Stable, afebrile. GENERAL: A well-developed gentleman, in no acute distress upon exam. HEENT: Normocephalic and atraumatic. Mucosa moist. NECK: Supple. No lymphadenopathy. LUNGS: Clear at this time. HEART: Regular rate and rhythm. ABDOMEN: Benign. EXTREMITIES: No clubbing, cyanosis or edema. Postop area looks pretty good. NEUROLOGIC: He does have some weakness. LABORATORY DATA: Admit labs show white count of 10.1, H&H of 8 and 24, and platelet count is noted to be 301. Sodium 131, potassium 3.6, BUN and creatinine of 15 and 0.8, and blood sugar is noted to be 166. ASSESSMENT: This is an 82-year-old gentleman admitted to the rehab with a working diagnosis of left hip pain status post hip arthroplasty and replacement with postop complications. The patient has potential to make improvement. We will institute the following multidisciplinary therapies including, but not limited to physical, occupational, respiratory, speech, nutritional services, prosthetics and orthotics. Given his complex medical condition and risks for more complications, rehabilitation services cannot be provided at a low level of care such as a intermediate facility. PLAN: 1. Admit to [facility] for an inpatient therapy to include the following disciplines: A. Physical therapy to improve gait, all transfer skills and bed mobility to a modified independent level. B. Occupational therapy to improve activities of daily living to a modified independent level. C. Case management to assist with discharge planning and placement options. D. Nutrition to assist with nutritional needs. E. Rehabilitation nursing to assist in monitoring the patient's underlying medical conditions and to assist with any type of bowel or bladder management. 2. The patient's current medications and medical care will be continued. 3. The patient will be placed on standard fall precautions. 4. The patient's estimated length of stay is approximately 7-10 days. 5. I am going to go ahead and type and cross and give him a couple units of blood. 6. I am going to follow up in the a.m. HISTORY AND PHYSICAL [id number] SALAS CHRISTIAN TRANSINT:[id number] Voice Confirmation ID: [id number] DOCUMENT ID: [id number] L[facility] notes whether there has been none or any medical/functional change since admission: - No change since prescreen. [facility]U attests patient continues to be appropriate for IRF: - Continues to be appropriate. BETTINA LEVY MD at 1028 CC: [id number] DICTATION DATE: 08/25/18901 RETORT ENGINEER: 08/25/18955 ADM IN [facility] [address] [place] [id number]
[2018-08-25 14:08] VITALS: Ht 167.6 cm; Wt 80.7 kg
--- NOTE | 2018-08-25 15:17 | NUR ---
SITTING IN IN ROOM. WITH PT. HE C/O BEING TIRED AND NEEDS LOUD VERBAL CUES TO SIT UP. HE WAS ABLE TO STAND AND TRANSFER FROM TO BED WITH MAX ASST OF TWO PEOPLE.
--- NOTE | 2018-08-25 16:44 | NUR ---
BLOOD STARTED VIA LEFT HAND IV. HE IS VERY SLEEPY AND SLOW TO FOLLOW SIMPLE ONE STEP COMMANDS. HE REQUIRES LOUD VERBAL CUES. HIS IS AT BEDSIDE AND HAS SAID SHE DOES NOT WANT FURTHER INTERVENTION FOR HIM. HE HAS A LIVING WILL AND SHE WILL FOLLOW IT. SHE IS CONSIDERING HOSPICE FOR HIM.
--- NOTE | 2018-08-25 20:00 | NUR ---
PT'S AT BEDSIDE, REFUSED 2ND UNIT OF BLOOD, WANTS NO OTHER INTERVENTIONS AT THIS TIME, CALLING IN HOSPICE IN AM. FLUIDS AND CALL LIGHT WITHIN REACH
[2018-08-26 08:00] VITALS: BP 141/67
--- NOTE | 2018-08-26 09:46 | NUR ---
PT AM MEDS ADMINISTERED. PT SPOUSE WANTS TO SPEAK WITH DR LEVY. DR LEVY NOTIFIED AND IN TO SEE PT.
--- NOTE | 2018-08-26 11:00 | NUR ---
PT RESTING IN BED, DENIES NEEDS. WCTM.
--- NOTE | 2018-08-26 13:35 | NUR ---
PATIENT DSIHCARGING HOME WITH FAMILY TODAY. [facility] WILL PROVIDE THERAPY AT HOME. [facility] WILL DELIVER A HOSPITAL BED TO PATIENT. DR. SHERIFF 09/02/18 @ 3:30, DR. NICHOLAS 09/06/18 @ 1:15, DR. FERMIN OFFICE WILL CALL PATIENT WITH AN APPOINTMENT. PATIENT CHOICE FORM FOR HOME HEALTH AND [facility] FORMS SIGNED, COPIES GIVEN TO PATIENT AND FILED IN CHART. DISCHARGE INSTRUCTIONS WITH [facility] DATA FAXED TO PCP AND TO HOME HEALTH.
--- NOTE | 2018-08-26 15:23 | NUR ---
PT DISCHARGE INSTRUCTIONS REVIEWED. PT AND SPOUSE STATE UNDERSTANDING. PT TAKEN OUT BY WHEELCHAIR BY HOSPITAL STAFF. PT GOING HOME WITH FAMILY.
--- NOTE | 2018-08-26 15:52 | NUR ---
PT MEDS CALLED IN TO [facility].
== END 2018-08-26 15:52 | disposition home health service (06) | DRG 560 ==
LOC: D.REHAB 16:02
PROVIDERS: ADMIT Emergency Medicine; ATTEND Emergency Medicine
DX: Z47.1 Aftercare following joint replacement surgery (principal); D62 Acute posthemorrhagic anemia; K91.89 Other postprocedural complications and disorders of digestive system; K56.7 Ileus, unspecified; K92.1 Melena; N17.9 Acute kidney failure, unspecified; E87.1 Hypo-osmolality and hyponatremia; Z96.642 Presence of left artificial hip joint; M16.12 Unilateral primary osteoarthritis, left hip; D72.829 Elevated white blood cell count, unspecified; I10 Essential (primary) hypertension; E86.0 Dehydration; K29.70 Gastritis, unspecified, without bleeding; R13.10 Dysphagia, unspecified; R01.1 Cardiac murmur, unspecified; K21.9 Gastro-esophageal reflux disease without esophagitis; K22.70 Barrett's esophagus without dysplasia; N40.0 Benign prostatic hyperplasia without lower urinary tract symptoms; R79.89 Other specified abnormal findings of blood chemistry; E11.65 Type 2 diabetes mellitus with hyperglycemia; I25.10 Atherosclerotic heart disease of native coronary artery without angina pectoris

== ENCOUNTER → 2018-08-28 18:19 | Outpatient (CLI) | payer MEDICARE, OTHER ==
[2018-08-25 14:08] VITALS: BMI 28.7
[2018-08-28 19:54] LABS: BASOPHILS 0.2 % (0-2); EOSINOPHILS 1.3 % (0-7); HEMATOCRIT 30.6 % (42.0-54.0); HEMOGLOBIN 10.3 g/dL (13.5-17.5); IMMATURE GRANULOCYTES 0.5 % (0-5); LYMPHOCYTES 16.3 % (15-50); MCH 30.3 pg (26.0-34.0); MCHC 33.7 g/dL (31.0-37.0); MEAN PLATELET VOLUME 8.9 fL (7.4-10.4); MONOCYTES 7.8 % (2-11); NEUTROPHILS 73.9 % (40-80); WBC 11.5 10x3/uL (4.8-10.8)
[2018-08-28 19:57] LABS: PLATELET COUNT 440 10x3/uL (130-400)
== END | disposition home or self-care (01) ==
LOC: D.LABREF 18:19
PROVIDERS: ATTEND Family Medicine
DX: Z96.642 Presence of left artificial hip joint (principal)

== ENCOUNTER 2018-10-08 16:45 | Emergency (ER) | payer MEDICARE, OTHER ==
[~2018-10-08] VITALS: Ht 167.6 cm; Wt 82.7 kg
[2018-10-08 16:48] VITALS: Ht 167.6 cm; Wt 82.7 kg
[2018-10-08 21:12] VITALS: BP 147/79
== END 2018-10-08 21:12 | disposition home or self-care (01) ==
LOC: D.ER 16:45
DX: S00.81XA Abrasion of other part of head, initial encounter (principal); W18.30XA Fall on same level, unspecified, initial encounter; Y93.89 Activity, other specified; Y92.511 Restaurant or cafe as the place of occurrence of the external cause; M25.511 Pain in right shoulder

== ENCOUNTER 2019-04-14 06:00 | Day surgery (SDC) | payer MEDICARE, OTHER ==
[2019-04-13 09:23] LABS: BASOPHILS 0.3 % (0-2); EOSINOPHILS 1.5 % (0-7); HEMOGLOBIN 12.2 g/dL (13.5-17.5); IMMATURE GRANULOCYTES 0.1 % (0-5); LYMPHOCYTES 19.4 % (15-50); MCH 29.5 pg (26.0-34.0); MCV 89.6 fL (80.0-100.0); MEAN PLATELET VOLUME 9.6 fL (7.4-10.4); MONOCYTES 10.4 % (2-11); NEUTROPHILS 68.3 % (40-80); RBC 4.13 10x6/uL (4.20-6.10); RDW 14.7 % (11.5-14.5)
[2019-04-13 09:24] LABS: PLATELET COUNT 285 10x3/uL (130-400)
[2019-04-13 09:30] LABS: ANION GAP 12.5 mmol/L (8-16); CALCIUM 9.1 mg/dL (8.5-10.1); CARBON DIOXIDE 29.2 mmol/L (21.0-32.0); CREATININE - SERUM 1.1 mg/dL (0.6-1.3); POTASSIUM - SERUM 4.7 mmol/L (3.5-5.1)
[~2019-04-14] VITALS: Ht 167.6 cm; Wt 78.5 kg
[~2019-04-14 06:00] MED LIST changes: +CENTRUM MEN'S1 EACH PO; +DILTIAZEM 24HR180 M4 PO; +SEROQUEL25 MG PO; +ZOLOFT25 MG PO
[2019-04-14 06:41] VITALS: BP 139/79; Ht 167.6 cm; Wt 78.5 kg
--- NOTE | 2019-04-14 09:19 | NUR ---
0915-DISCHARGE CRITERIA MET. ABLE TO URINATE WITHOUT COMPLICATIONS. REVIEWED POST OPERATIVE INSTRUCTIONS WITH PT AND . VERBALIZES UNDERSTANDING WITHOUT FURTHER QUESTIONS OR CONCERNS. ESCORTED OUT VIA W/C WITH [facility] HOME. STABLE
--- NOTE | 2019-04-14 12:27 | OP ---
PATIENT NAME: SALAS CHRISTIAN MEDICAL RECORD: [id number] :37 LOCATION:D.OPS ADMISSION DATE: SURGEON: MIGNON LY MD DATE OF OPERATION: 04/14/2019 SURGEON: Mignon Ly MD ANESTHESIA: TIVA by Kole Concepcion CRNA. DIAGNOSIS: Obstructive BPH. AIXA shows a 50 gram prostate. IPSS score is 24 and quality of life score is 5 on finasteride and tamsulosin. PROCEDURE: UroLift times 4. FINDINGS: Obstructive bilateral lateral lobes. No bladder tumors and no median lobe. ESTIMATED BLOOD LOSS: None. CLINICAL HISTORY: This is an 83-year-old male, who had obstructive BPH with urge urinary incontinence. He was started on finasteride and tamsulosin since July of 2017. 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 He has a significant medical history of diabetes mellitus type 2 with peripheral neuropathy. He wishes to have the UroLift procedure done. HE IS ALLERGIC TO SULFA AND WASP VENOM. He was given [facility] orthotic/prosthetic practitioner to the OR. DESCRIPTION OF PROCEDURE: The patient was given IV sedation. He was placed in lithotomy position. The UroLift scope was introduced. 1.5 cm distal to the bladder neck and at the end of the lateral sulcus 1 unit was placed on each side. Then, at the level of verumontanum at the anterolateral sulcus 1 unit was placed on each side. The anterior urethral channel was now wide open. The bladder was left partly full for a voiding trial. The scope was removed. I will see the patient in followup in 2-4 weeks. TRANSINT:[id number] Voice Confirmation ID: [id number] DOCUMENT ID: [id number] MIGNON LY MD at 1227 CC: [id number] DICTATION DATE: 04/14/19 0844 SUPPORT ASSOCIATE: 04/14/19 1007 [facility] 04/14/[address] [id number]
== END 2019-04-14 09:15 | disposition home or self-care (01) ==
LOC: D.OPS 06:00 → D.PAN 08:05 → D.OPS 08:05
PROVIDERS: Anesthesiology; ATTEND Urology
DX: N40.1 Benign prostatic hyperplasia with lower urinary tract symptoms (principal); N13.8 Other obstructive and reflux uropathy

== ENCOUNTER → 2019-11-16 12:11 | Outpatient (CLI) | payer MEDICARE, OTHER ==
[2019-04-14 06:41] VITALS: BMI 28.8
== END | disposition home or self-care (01) ==
LOC: D.LABREF 12:11
PROVIDERS: ATTEND Internal Medicine Pulmonary Disease
DX: Z11.59 Encounter for screening for other viral diseases (principal); R06.09 Other forms of dyspnea

== ENCOUNTER → 2019-11-17 10:55 | Outpatient (CLI) | payer MEDICARE, OTHER ==
[2019-04-14 06:41] VITALS: BMI 28.8
== END | disposition home or self-care (01) ==
LOC: D.RT 10:55
PROVIDERS: ATTEND Internal Medicine Pulmonary Disease
DX: R06.09 Other forms of dyspnea (principal)